=== PATIENT | female | born 1990 | race Caucasian/White ===

== ENCOUNTER 2019-09-18 13:04 | Emergency (ER) | payer BC, SELFPAY ==
[2019-09-18 13:09] VITALS: BP 116/75; PULSE 64; RESP 16; TEMP 37; O2SAT 100
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
[2019-09-18] MEDS: Acetaminophen 500 MG TAB 1000 MG PO (13:37)
[2019-09-18] MEDS: Ibuprofen 600 MG TAB PO (13:37)
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
== END 2019-09-18 14:34 | disposition home or self-care (01) ==
PROVIDERS: Emergency Provider Physician Assistant
DX: S43.121A Dislocation of right acromioclavicular joint, 100%-200% displacement, initial encounter (principal); S40.211A Abrasion of right shoulder, initial encounter; V17.0XXA Pedal cycle driver injured in collision with fixed or stationary object in nontraffic accident, initial encounter; Y93.55 Activity, bike riding
CPT/HCPCS: 90471; 99284; 71046; 71100; 73030; L3650